=== PATIENT | male | born 1940 | race Caucasian/White ===

== ENCOUNTER 2021-01-13 12:31 | Outpatient (CLI) | payer MEDICARE, OTHER, SELFPAY ==
--- NOTE | 2021-01-13 12:45 | USCV_ITS ---
Hadley Tamir Age: 80 Gender: M : 1940 Exam Date: 01/13/2021 12:52 Ordering Phys: Scott Aleman M.D ([email or web address]) Technologist: Alison Acevedo Exam Location: [facility] [place] Indication: CHEST PAIN BP: / HR: 51 Rhythm: Sinus Technical Quality: Adequate MEASUREMENTS (Male / Female) Normal Values 2D ECHO LV Diastolic Diameter PLAX 3.8 cm 4.2 - 5.9 / 3.9 - 5.3 cm LV Systolic Diameter PLAX 2.9 cm LV Chamber Size 2.7 cm IVS Diastolic Thickness 1.0 cm 0.6 - 1.0 / 0.6 - 0.9 cm IVS Systolic Thickness 1.4 cm LVPW Diastolic Thickness 1.3 cm 0.6 - 1.0 / 0.6 - 0.9 cm LVPW Systolic Thickness 1.7 cm RV Chamber Size 3.1 cm LVOT Diameter 2.0 cm LV Ejection Fraction 2D Teich 44.0 % LV Ejection Fraction MOD 2C 37.9 % LV Ejection Fraction 2C AL 38.4 % LA Diameter 4.3 cm LA Width 3.0 cm LA Height 5.5 cm RA Width 4.1 cm RA Height 5.9 cm Aorta at Sinotubular Diameter 4.2 cm M-MODE LV Diastolic Diameter MM 4.2 cm 4.2 - 5.9 / 3.9 - 5.3 cm LV Systolic Diameter MM 2.9 cm LV Ejection Fraction MM Teich 58.1 % IVS Diastolic Thickness MM 1.3 cm 0.6 - 1.0 / 0.6 - 0.9 cm IVS Systolic Thickness MM 1.4 cm LVPW Diastolic Thickness MM 1.2 cm 0.6 - 1.0 / 0.6 - 0.9 cm LVPW Systolic Thickness MM 1.3 cm RV Diastolic Diameter MM 0.9 cm Aortic Annulus Diameter 4.1 cm LA Ao Ratio MM 1.1 MV E Point Septal Separation 0.4 cm DOPPLER AV Peak Velocity 152.7 cm/s LVOT Peak Velocity 97.0 cm/s AV Area Cont Eq vti 2.6 cm squared AV Area Cont Eq pk 2.1 cm squared MV Area PHT 2.5 cm squared Mitral E to A Ratio 1.8 MV E' Velocity 46.5 cm/s Mitral E to MV E' Ratio 7.6 Mitral E to LV E' Lateral Ratio 6.7 Mitral E to LV E' Septal Ratio 8.8 TR Peak Velocity 200.2 cm/s TR Peak Gradient 16.0 mmHg TR Mean Velocity 167.7 cm/s TR Mean Gradient 12.5 mmHg TR Velocity Time Integral 75.9 cm TV Peak E Velocity 94.0 cm/s Right Atrial Pressure 3.0 mmHg Pulmonary Artery Systolic Pressu 19.0 mmHg PV Peak Velocity 73.0 cm/s RV Acceleration Time 0.1 s RV Ejection Time 0.4 s RV AcT/ET 0.4 FINDINGS Left Ventricle Normal left ventricular size. LV systolic function is borderline normal with EF of 50-55%.Septal motion is consistent with prior surgery. Diastolic function is normal Right Ventricle The right ventricle is normal in size and function. Right Atrium The right atrium is mildly enlarged Left Atrium The left atrium is mildly enlarged Mitral Valve Aortic Valve Aortic valve is calcified. No significant aortic stenosis is noted. There is mild aortic regurgitation. Tricuspid Valve Structurally normal tricuspid valve without significant stenosis. Mild to moderate tricuspid regurgitation. RVSP is 25- 30mmHg Pulmonic Valve Structurally normal pulmonic valve without significant stenosis. There is no pulmonic regurgitation. Pericardium Normal pericardium without effusion. Aorta Aortic root is dilated CONCLUSIONS LV systolic function is borderline normal with EF of 50-55% Diastolic function is normal Mild biatrial enlargement Mild to moderate tricuspid regurgitation Aortic root is dilated Compared to prior echocardiogram from 11/29/2015, no significant changes are noted Scott Aleman MD (Electronically Signed) Final Date: 18 January 2021 20:24 S
== END 2021-01-13 12:32 | disposition home or self-care (01) ==
LOC: US 12:32
PROVIDERS: PCP Nurse Practitioner; Visit Provider Internal Medicine
DX: Z86.79 Personal history of other diseases of the circulatory system (principal); R07.9 Chest pain, unspecified; I07.1 Rheumatic tricuspid insufficiency
CPT/HCPCS: 93306

== ENCOUNTER 2021-11-27 09:02 | Outpatient (CLI) | payer MEDICARE, OTHER, SELFPAY ==
--- NOTE | 2021-11-27 09:11 | USCV_ITS ---
Hadley Tamir Age: 81 Gender: M : 1940 Exam Date: 11/27/2021 09:31 Ordering Phys: Eva Graves APN Technologist: [place] [facility] [place]: AAA SCREENING. No prior hx AAA. HISTORY: Diameter (cm) AP x Transverse x Length Velocity (cm/s) Waveform Prox Aorta: 2.86 x 2.82 x 85.10 Triphasic Mid Aorta: 2.65 x 2.76 x 84.30 Triphasic Distal Aorta: 2.07 x 2.21 x 77.70 Triphasic Right Iliac Prox: 1.25 x 1.53 x 91.70 Triphasic Left Iliac Prox: 1.46 x 1.22 x 71.10 Triphasic Stent Prox Landing x x Aneurysmal Sac Max x x Lt Lat Sac Dim Rt Lat Sac Dim Stent Dist Landing x x Right Iliac Stent x x Left Iliac Stent x x Right Renal Art Left Renal Art FINDINGS: Mild diffuse plaques in the abdominal aorta Normal aortic and common iliac artery dimensions Normal Doppler flow velocities CONCLUSIONS Mild diffuse plaques in the abdominal aorta. No evidence of aneurysms in abdominal aorta or proximal common iliac arteries Dr Lianne Jimenez MD [facility] (Electronically Signed) Final Date: 27 November 2021 18:01 S
== END 2021-11-27 09:03 | disposition home or self-care (01) ==
LOC: RAD 09:09
PROVIDERS: PCP Nurse Practitioner; Visit Provider Nurse Practitioner
DX: I71.4 Abdominal aortic aneurysm, without rupture (principal); I70.0 Atherosclerosis of aorta
CPT/HCPCS: 76706

== ENCOUNTER → 2022-08-03 11:11 | Outpatient (BNVA) | payer MEDICARE, OTHER, SELFPAY | PROVIDERS: PCP Nurse Practitioner Family; Visit Provider Internal Medicine Cardiovascular Disease | DX: I25.5 Ischemic cardiomyopathy (principal); I47.1 Supraventricular tachycardia; I71.9 Aortic aneurysm of unspecified site, without rupture; E78.5 Hyperlipidemia, unspecified; I10 Essential (primary) hypertension; I25.10 Atherosclerotic heart disease of native coronary artery without angina pectoris; Z95.1 Presence of aortocoronary bypass graft; I48.91 Unspecified atrial fibrillation; Z98.890 Other specified postprocedural states | CPT/HCPCS: 99213; 99214 ==

== ENCOUNTER 2022-08-27 10:42 | Outpatient (CLI) | payer MEDICARE, OTHER, SELFPAY ==
--- NOTE | 2022-08-27 09:30 | CT_ITS ---
WS: [id number] CTA THORACIC TECHNIQUE: Contrast enhanced CTA of the thoracic aorta with coronal and sagittal reformatted images a nd maximum intensity projection (MIP) images. CLINICAL INFORMATION: surveil previous ascending akortic aneurysm repair COMPARISON: DLP: 1276.[address] scans at [facility] use at least one of these dose optimization techniques: automated e xposure control; mA and/or kV adjustment per patient size (includes targeted exams where dose is matc hed to clinical indication); or iterative reconstruction. FINDINGS: Previous postoperative changes ascending aortic root graft placement. Aortic graft and ascending thor acic aorta are stable in appearance compared to 2019. Ascending thoracic aorta today measures approxi mately 4.3 cm unchanged from previous. Slightly ectatic aortic arch measuring 3.5 cm is unchanged fro m previous. Sternotomy. CABG. Normal caliber descending thoracic aorta. Proximal main pulmonary arter ies are normal. Adrenal glands are normal. Small RIGHT renal cyst. Splenic granulomas. Celiac and SMA are patent. Gal lbladder sludge or microcalculi in the gallbladder. Anterior wedging in the thoracic spine with hyper trophic changes. Moderate chronic emphysematous changes. CT/CT angio chest 15057 IMPRESSION: 1. Stable ascending aortic graft with ascending thoracic aorta measuring 4.3 un changed since 2019 2. Stable ectatic thoracic aorta measuring 3.5 CM. 3. Vascular calcification including coronary. 4. No other significant changes from previous.
[2022-08-27 11:38] LABS: Blood Urea Nitrogen 22 mg/dL (8-23)
[2022-08-27] MEDS: iohexol 350 mg/mL 100 mL Btl IV (11:53)
== END 2022-08-27 10:43 | disposition home or self-care (01) ==
LOC: RAD 10:43
PROVIDERS: PCP Nurse Practitioner Family; Visit Provider Internal Medicine Cardiovascular Disease
DX: Z98.890 Other specified postprocedural states (principal); I77.810 Thoracic aortic ectasia
CPT/HCPCS: 71275; 82565; 84520

== ENCOUNTER → 2022-10-15 09:53 | Outpatient (BNVA) | payer MEDICARE, OTHER, SELFPAY | PROVIDERS: PCP Nurse Practitioner Family; Visit Provider Nurse Practitioner Family | DX: R55 Syncope and collapse (principal); I48.91 Unspecified atrial fibrillation; I10 Essential (primary) hypertension | CPT/HCPCS: 99214 ==

== ENCOUNTER → 2022-11-29 10:43 | Outpatient (BNVA) | payer MEDICARE, OTHER, SELFPAY | PROVIDERS: PCP Nurse Practitioner Family; Visit Provider Internal Medicine Cardiovascular Disease | DX: R55 Syncope and collapse (principal); I25.5 Ischemic cardiomyopathy; Z98.890 Other specified postprocedural states; Z86.79 Personal history of other diseases of the circulatory system; I71.9 Aortic aneurysm of unspecified site, without rupture; E78.5 Hyperlipidemia, unspecified; I10 Essential (primary) hypertension; I25.10 Atherosclerotic heart disease of native coronary artery without angina pectoris; I48.91 Unspecified atrial fibrillation; Z95.1 Presence of aortocoronary bypass graft | CPT/HCPCS: 99214 ==

== ENCOUNTER 2022-12-21 10:48 | Outpatient (CLI) | payer MEDICARE, OTHER, SELFPAY ==
--- NOTE | 2022-12-21 | USCV_ITS ---
Tamir Butcher Age: 82 Gender: M : 1940 Exam Date: 12/21/2022 11:04 Ordering Phys: Brisa Armstrong HOSPICE DIRECTOR Technologist: MIL Exam Location: [facility] [place] Indication: AAA Screening HISTORY: Diameter (cm) AP x Transverse x Length Velocity (cm/s) Waveform Prox Aorta: 2.17 x 2.13 x 83.50 Mid Aorta: 1.89 x 1.94 x 61.10 Distal Aorta: 1.95 x 2.20 x 40.30 Right Iliac Prox: 0.94 x 1.43 x 101.60 Left Iliac Prox: 0.96 x 1.40 x 117.30 Stent Prox Landing x x Aneurysmal Sac Max x x Lt Lat Sac Dim Rt Lat Sac Dim Stent Dist Landing x x Right Iliac Stent x x Left Iliac Stent x x Right Renal Art Left Renal Art FINDINGS: Comparison:. 11/27/21. Ectatic abdominal aorta with evidence of atherosclerotic plaque noted. No evidence of abdominal aortic aneurysm. There is evidence of atherosclerotic plaque no significan stenosis in the right common iliac artery. There is evidence of atherosclerotic plaque no significan stenosis in the left common iliac artery. CONCLUSIONS No evidence of abdominal aortic or bilateral iliac aneurysm. Dr. Liliana Shirley DO (Electronically Signed) Final Date: 21 December 2022 11:52 S
== END 2022-12-21 10:49 | disposition home or self-care (01) ==
PROVIDERS: PCP Nurse Practitioner Family; Visit Provider Nurse Practitioner Family
DX: Z13.6 Encounter for screening for cardiovascular disorders (principal)
CPT/HCPCS: 76706

== ENCOUNTER 2022-12-26 11:54 | Outpatient (CLI) | payer MEDICARE, OTHER, SELFPAY ==
--- NOTE | 2022-12-26 12:00 | USCV_ITS ---
Hadley Tamir Age: 82 Gender: M : 1940 Exam Date: 12/26/2022 12:22 Ordering Phys: Cali Powers MD ([email or web address]) Technologist: Lynda Garcia Exam Location: [facility] [place] Indication: TIA< dizzy, CAD BP: 130 / 88 HR: 57 Rhythm: Sinus Technical Quality: Adequate MEASUREMENTS (Male / Female) Normal Values 2D ECHO LV Diastolic Diameter PLAX 4.5 cm 4.2 - 5.9 / 3.9 - 5.3 cm LV Systolic Diameter PLAX 2.8 cm IVS Diastolic Thickness 1.3 cm 0.6 - 1.0 / 0.6 - 0.9 cm IVS Systolic Thickness 1.7 cm LVPW Diastolic Thickness 0.8 cm 0.6 - 1.0 / 0.6 - 0.9 cm LVPW Systolic Thickness 1.5 cm LVOT Diameter 2.1 cm LV Ejection Fraction 2D Teich 68.4 % LV Ejection Fraction MOD 2C 60.9 % LV Ejection Fraction 2C AL 64.7 % LA Diameter 3.7 cm LA Width 4.3 cm LA Height 6.2 cm RA Width 5.1 cm RA Height 5.7 cm Aorta at Sinotubular Diameter 3.8 cm M-MODE MV E Point Septal Separation 0.4 cm DOPPLER AV Peak Velocity 157.0 cm/s LVOT Peak Velocity 113.0 cm/s AV Area Cont Eq vti 2.4 cm squared AV Area Cont Eq pk 2.5 cm squared MV Peak Velocity 79.0 cm/s MV Area PHT 2.0 cm squared Mitral E to A Ratio 1.0 MV E' Velocity 44.0 cm/s Mitral E to MV E' Ratio 6.4 Mitral E to LV E' Lateral Ratio 5.8 Mitral E to LV E' Septal Ratio 7.2 TR Peak Velocity 217.3 cm/s TR Peak Gradient 18.9 mmHg Right Atrial Pressure 3.0 mmHg Pulmonary Artery Systolic Pressu 21.9 mmHg PV Peak Velocity 104.0 cm/s RV Acceleration Time 0.1 s RV Ejection Time 0.3 s RV AcT/ET 0.5 FINDINGS Left Ventricle Normal left ventricular size, systolic function and wall thickness, with no regional wall motion abnormalities. Grade I/IV diastolic dysfunction (abnormal relaxation filling pattern), normal to mildly elevated filling pressures. Left ventricular ejection fraction is estimated at 60 %. Right Ventricle Normal right ventricular size and systolic function. Normal right ventricular systolic pressure. Right Atrium Mildly increased right atrial size. Left Atrium Mildly increased left atrial size. Mitral Valve Structurally normal mitral valve. Trace mitral valve regurgitation. Aortic Valve Structurally normal trileaflet aortic valve. Moderate aortic valve calcification. Aortic valve sclerosis without stenosis. Trace AI Tricuspid Valve Structurally normal tricuspid valve. Mild tricuspid valve regurgitation. Pulmonic Valve Pulmonic valve not well visualized. Pericardium Normal pericardium without effusion. Aorta Normal ascending aorta dimension. IVC Inferior vena cava not visualized. CONCLUSIONS Normal left ventricular size, systolic function and wall thickness, with no regional wall motion abnormalities. Grade I/IV diastolic dysfunction (abnormal relaxation filling pattern), normal to mildly elevated filling pressures. Left ventricular ejection fraction is estimated at 60 %. Mildly increased right atrial size. Mildly increased left atrial size. Structurally normal mitral valve. Trace mitral valve regurgitation. Structurally normal trileaflet aortic valve. Moderate aortic valve calcification. Aortic valve sclerosis without stenosis. Trace AI. There is no change from the previous study done January 18, 2021 Dr. Cali Powers MD (Electronically Signed) Final Date: 27 December 2022 10:27 S
== END 2022-12-26 11:55 | disposition home or self-care (01) ==
LOC: RAD 11:54
PROVIDERS: PCP Nurse Practitioner Family; Visit Provider Internal Medicine Cardiovascular Disease
DX: I25.5 Ischemic cardiomyopathy (principal); R55 Syncope and collapse; Z98.890 Other specified postprocedural states
CPT/HCPCS: 93306

== ENCOUNTER → 2023-01-18 10:18 | Outpatient (BNVA) | payer MEDICARE, OTHER, SELFPAY | PROVIDERS: PCP Nurse Practitioner Family; Visit Provider Internal Medicine | DX: I25.5 Ischemic cardiomyopathy (principal); Z86.79 Personal history of other diseases of the circulatory system; Z98.890 Other specified postprocedural states; I71.9 Aortic aneurysm of unspecified site, without rupture; E78.5 Hyperlipidemia, unspecified; I10 Essential (primary) hypertension; I25.10 Atherosclerotic heart disease of native coronary artery without angina pectoris; I48.91 Unspecified atrial fibrillation; Z95.1 Presence of aortocoronary bypass graft; Z79.82 Long term (current) use of aspirin | CPT/HCPCS: 99214 ==

== ENCOUNTER → 2023-02-11 09:38 | Outpatient (BNVA) | payer MEDICARE, OTHER, SELFPAY | PROVIDERS: PCP Nurse Practitioner Family; Visit Provider Internal Medicine Cardiovascular Disease | DX: R42 Dizziness and giddiness (principal); R00.1 Bradycardia, unspecified | CPT/HCPCS: 93225 ==

== ENCOUNTER → 2023-07-19 11:35 | Outpatient (BNVA) | payer MEDICARE, OTHER, SELFPAY | PROVIDERS: PCP Nurse Practitioner Family; Visit Provider Internal Medicine | DX: I25.5 Ischemic cardiomyopathy (principal); Z86.79 Personal history of other diseases of the circulatory system; Z98.890 Other specified postprocedural states; I71.9 Aortic aneurysm of unspecified site, without rupture; E78.5 Hyperlipidemia, unspecified; I10 Essential (primary) hypertension; I25.10 Atherosclerotic heart disease of native coronary artery without angina pectoris; I48.91 Unspecified atrial fibrillation; Z95.1 Presence of aortocoronary bypass graft | CPT/HCPCS: 99214 ==

== ENCOUNTER 2023-08-05 12:19 | Outpatient (CLI) | payer MEDICARE, OTHER, SELFPAY ==
--- NOTE | 2023-08-05 12:45 | USCV_ITS ---
Tamir Butcher Age: 82 Gender: M : 1940 Exam Date: 08/05/2023 12:39 Ordering Phys: Scott Aleman M.D ([email or web address]) Technologist: Cas Edwards Exam Location: [facility] [place] Indication: murmur BP: 125 / 75 HR: 62 Rhythm: Sinus Technical Quality: Adequate MEASUREMENTS (Male / Female) Normal Values 2D ECHO LV Diastolic Diameter PLAX 3.7 cm 4.2 - 5.9 / 3.9 - 5.3 cm LV Systolic Diameter PLAX 2.2 cm IVS Diastolic Thickness 1.1 cm 0.6 - 1.0 / 0.6 - 0.9 cm IVS Systolic Thickness 1.8 cm LVPW Diastolic Thickness 1.1 cm 0.6 - 1.0 / 0.6 - 0.9 cm LVPW Systolic Thickness 1.5 cm LVOT Diameter 2.0 cm LV Ejection Fraction 2D Teich 72.6 % LV Ejection Fraction MOD 2C 72.6 % LV Ejection Fraction 2C AL 72.5 % LA Diameter 4.1 cm Aorta at Sinotubular Diameter 3.6 cm M-MODE Aortic Annulus Diameter 4.6 cm LA Ao Ratio MM 0.8 MV E Point Septal Separation 0.7 cm DOPPLER AV Peak Velocity 332.0 cm/s LVOT Peak Velocity 99.0 cm/s AV Area Cont Eq vti 1.2 cm squared AV Area Cont Eq pk 1.0 cm squared MV Area PHT 2.5 cm squared Mitral E to A Ratio 0.9 MV E' Velocity 42.0 cm/s Mitral E to MV E' Ratio 7.2 Mitral E to LV E' Lateral Ratio 6.5 Mitral E to LV E' Septal Ratio 8.2 TR Peak Velocity 285.0 cm/s TR Peak Gradient 32.5 mmHg TV Peak E Velocity 108.0 cm/s Right Atrial Pressure 3.0 mmHg Pulmonary Artery Systolic Pressu 35.5 mmHg RV Acceleration Time 0.1 s FINDINGS Left Ventricle Left ventricle is normal in size. LV systolic function is normal with EF of 55 to 60%. No regional wall motion abnormalities are seen. Grade 1 diastolic dysfunction. Right Ventricle Normal in size and function Right Atrium Normal in size Left Atrium Normal in size Mitral Valve Mild mitral annular calcification. Trace mitral regurgitation. Aortic Valve Aortic valve is thickened. Mild to moderate aortic stenosis with aortic valve area 1.18 cm squared and mean gradient across aortic valve of 18 mmHg. Tricuspid Valve Mild tricuspid regurgitation. RVSP is 35 to 40 mmHg. This is consistent with mild pulmonary hypertension. Pulmonic Valve Not well-visualized Pericardium Normal Aorta Ascending aorta is mildly dilated. IVC Appears to be normal CONCLUSIONS LV systolic function is normal with EF 55 to 60%. Grade 1 diastolic dysfunction. Trace mitral regurgitation. Mild to moderate aortic stenosis Mild tricuspid regurgitation. Ascending aorta is mildly dilated. Compared to prior echocardiogram from 12/2022, patient has mild to moderate aortic stenosis. Scott Aleman MD (Electronically Signed) Final Date: 10 August 2023 22:13 S
== END 2023-08-05 12:20 | disposition home or self-care (01) ==
LOC: RAD 12:22
PROVIDERS: PCP Nurse Practitioner Family; Visit Provider Internal Medicine
DX: I08.3 Combined rheumatic disorders of mitral, aortic and tricuspid valves (principal); R01.1 Cardiac murmur, unspecified
CPT/HCPCS: 93306

== ENCOUNTER → 2023-10-18 08:49 | Outpatient (BNVA) | payer MEDICARE, OTHER, SELFPAY | PROVIDERS: PCP Nurse Practitioner Family; Visit Provider Podiatrist Foot & Ankle Surgery | DX: B35.1 Tinea unguium; M79.671 Pain in right foot; M79.672 Pain in left foot | CPT/HCPCS: 11721; 99203 ==

== ENCOUNTER → 2024-01-24 10:31 | Outpatient (BNVA) | payer MEDICARE, OTHER, SELFPAY | PROVIDERS: PCP Nurse Practitioner Family; Visit Provider Nurse Practitioner Family | DX: I35.0 Nonrheumatic aortic (valve) stenosis (principal) | CPT/HCPCS: 99214 ==

== ENCOUNTER 2024-01-31 11:50 | Outpatient (CLI) | payer MEDICARE, OTHER, SELFPAY ==
--- NOTE | 2024-01-31 12:00 | USCV_ITS ---
Tamir Butcher Age: 83 Gender: M : 1940 Exam Date: 01/31/2024 12:02 Ordering Phys: Julee Busch Technologist: CT Exam Location: [facility] [place] Indication: BP: 140 / 64 HR: 77 Rhythm: Sinus Technical Quality: Adequate MEASUREMENTS (Male / Female) Normal Values 2D ECHO LVOT Diameter 2.3 cm LV Ejection Fraction MOD 2C 68.6 % LV Ejection Fraction 2C AL 67.9 % LA Diameter 5.0 cm RA Systolic Volume 4C AL 108.9 ml RA Systolic Volume 4C MOD 104.8 ml Aorta at Sinotubular Diameter 3.9 cm M-MODE LA Ao Ratio MM 1.3 AV Cusp Separation MM 0.8 cm DOPPLER AV Peak Velocity 263.3 cm/s LVOT Peak Velocity 98.0 cm/s AV Area Cont Eq vti 1.8 cm squared AV Area Cont Eq pk 1.6 cm squared MV Peak Velocity 73.0 cm/s MV Area PHT 2.2 cm squared Mitral E to A Ratio 1.0 TR Peak Velocity 241.0 cm/s TR Peak Gradient 23.2 mmHg TV Peak E Velocity 83.0 cm/s Right Atrial Pressure 3.0 mmHg Pulmonary Artery Systolic Pressu 26.2 mmHg PV Peak Velocity 109.5 cm/s FINDINGS Left Ventricle Normal left ventricular size and systolic function, EF 69%.no regional wall motion abnormalities. Right Ventricle The right ventricle is normal in size and function. Right Atrium Mildly increased right atrial size. Left Atrium Mildly increased left atrial size. Mitral Valve No gross abnormalities noted Aortic Valve Mild aortic valve stenosis, mean gradient 13.6 mmHg, MARC 1.8 cm squared. Tricuspid Valve Mild tricuspid valve regurgitation. Estimated pulmonary artery peak systolic pressure of 26 mmHg Pulmonic Valve Pulmonic valve not well visualized. Pericardium Normal pericardium without effusion. Aorta Normal ascending aorta dimension. IVC Inferior vena cava not visualized. CONCLUSIONS Normal left ventricular size and systolic function, EF 69%.no regional wall motion abnormalities. Mild biatrial enlargement. Mild aortic valve stenosis, mean gradient 13.6 mmHg, MARC 1.8 cm squared. Peak velocity of 2.63 m/s Mild tricuspid valve regurgitation. Estimated pulmonary artery peak systolic pressure of 26 mmHg. There is no pericardial effusion. There are no intracardiac masses. Compared to the study from 08/05/2023, there may not be significant change Dr Lianne Jimenez MD [facility] (Electronically Signed) Final Date: 31 January 2024 20:22 S
== END 2024-01-31 11:51 | disposition home or self-care (01) ==
LOC: RAD 11:50
PROVIDERS: PCP Nurse Practitioner Family; Visit Provider Nurse Practitioner Family
DX: I08.2 Rheumatic disorders of both aortic and tricuspid valves (principal)
CPT/HCPCS: 93306

== ENCOUNTER 2024-02-13 09:39 | Outpatient (CLI) | payer MEDICARE, OTHER, SELFPAY ==
[2024-02-13 10:07] VITALS: BMI 27.8
--- NOTE | 2024-02-13 10:10 | ECG_ITS ---
[facility] Test Date: 2024-02-13 Pat Name: Tamir Butcher Department: Room: Gender: Male Events Manager: : 1940 Requested By: Julee Busch Order Number: [id number] Pickard MD: Scott Aleman M.D. Interpretive Statements NAME OF STUDY: LEXISCAN SESTAMIBI STRESS TEST INDICATION: [Worsening Fatigue on Exertin] Procedure: At the baseline, the blood pressure was 135/76 mmHg with a heart rate of 69 bpm. The electrocardiogram showed normal sinus rhythm, right bundle branch block. The Lexiscan was infused over a period of 20 seconds. A total of 0.4 mg of Lexiscan was infused. The stress phase was continued for a total of 5 minutes. Heart rate was at the end of stress phase was 68 bpm and a blood pressure of 142/75 mmHg. The EKG at the peak infusion revealed normal sinus rhythm with no significant ST-T wave changes. Sestamibi was injected 20 seconds after the Lexiscan infusion. Blood pressure at the end of recovery phase was 142/75 mmHg with a heart rate of 67 bpm. Conclusion: 1. Normal EKG response to Lexiscan infusion 2. No Lexiscan induced chest pain or cardiac arrhythmia. 3. Normal blood pressure and heart rate response. 4. Sestamibi/sestamibi perfusion scan pending; see separate report. Electronically Signed On 02-20-2024 12:22:25 CDT by Scott Aleman M.D. [id number]
--- NOTE | 2024-02-13 10:11 | NMCV_ITS ---
NM adrian perf SPECT r/s* [id number] Tamir Butcher Age: 83 Gender: M : 1940 Exam Date: 02/13/2024 10:58 Ordering Phys: Julee Busch Technologist: YAZ Sanz Exam [facility]: [facility] Indications: CORONARY ANGIOPLASTY STATUS STRESS TEST Please see separate stress test report in [facility] for full findings IMAGE PROTOCOL Rest/Stress 1 Lexiscan Day Radiopharmaceutical Dose (mCi) Administration Site Administered by Rest: Tc-99m 10.9 IV YAZ Sanz Sestamibi Stress:Tc-99m 33.0 IV YAZ Boggs Sestamibi Rest: 13-Feb-2024 60 Discovery 630 Stress: 13-Feb-2024 30 Discovery 630 0.4mg Lexiscan. Images obtained in supine and prone position. SPECT RESULTS Technical Quality: Excellent Raw Data Analysis: Normal Image Corrections: No attenuation or motion correction applied Summed Stress Score: 3 Summed Rest Score: 7 Summed Difference Score: 0 PERFUSION FINDINGS There is a medium sized area of fixed perfusion defect noted in the inferior wall. 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 FUNCTIONAL RESULTS (calculated via Gated SPECT) Stress Image LV EF (%): 76 Stress EDV (mL):74 TID: 0.98 Stress ESV (mL):18 FUNCTIONAL FINDINGS: There is normal left ventricular systolic function. IMPRESSIONS 1. 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 No evidence of ischemia 2. LV systolic function is normal Scott Aleman MD (Electronically Signed) Final Date: 15 February 2024 09:17 S
[2024-02-13] MEDS: regadenoson 0.4 Mg/5 ml Syringe 0.400000000000000022 MG IVP (11:47)
[2024-02-13 12:13] VITALS: BP 154/67; PULSE 82
== END 2024-02-13 09:40 | disposition home or self-care (01) ==
LOC: CDL 09:40
PROVIDERS: PCP Nurse Practitioner Family; Visit Provider Nurse Practitioner Family
DX: Z95.1 Presence of aortocoronary bypass graft (principal)
CPT/HCPCS: 36415; 78452; 93017; 96374; A9500; J2785

== ENCOUNTER → 2024-07-23 11:20 | Outpatient (BNVA) | payer MEDICARE, OTHER, SELFPAY | PROVIDERS: PCP Nurse Practitioner Family; Visit Provider Internal Medicine | DX: I25.10 Atherosclerotic heart disease of native coronary artery without angina pectoris (principal); I25.5 Ischemic cardiomyopathy; Z86.79 Personal history of other diseases of the circulatory system; Z98.890 Other specified postprocedural states; I71.9 Aortic aneurysm of unspecified site, without rupture; E78.5 Hyperlipidemia, unspecified; I10 Essential (primary) hypertension; I48.91 Unspecified atrial fibrillation; Z95.1 Presence of aortocoronary bypass graft | CPT/HCPCS: 99214 ==

== ENCOUNTER → 2024-12-16 13:08 | Outpatient (BNVA) | payer MEDICARE, OTHER, SELFPAY | PROVIDERS: PCP Nurse Practitioner Family; Visit Provider Podiatrist Foot & Ankle Surgery | DX: B35.1 Tinea unguium (principal) | CPT/HCPCS: 99213 ==

== ENCOUNTER → 2025-01-25 11:58 | Outpatient (BNVA) | payer MEDICARE, OTHER, SELFPAY | PROVIDERS: PCP Nurse Practitioner Family; Visit Provider Internal Medicine | DX: I25.5 Ischemic cardiomyopathy (principal); I48.91 Unspecified atrial fibrillation; Z86.79 Personal history of other diseases of the circulatory system; Z98.890 Other specified postprocedural states; I71.9 Aortic aneurysm of unspecified site, without rupture; E78.5 Hyperlipidemia, unspecified; I10 Essential (primary) hypertension; I25.10 Atherosclerotic heart disease of native coronary artery without angina pectoris; Z95.1 Presence of aortocoronary bypass graft; I35.0 Nonrheumatic aortic (valve) stenosis | CPT/HCPCS: 99214 ==

== ENCOUNTER → 2025-01-25 12:39 | Outpatient (BNVA) | payer MEDICARE, OTHER, SELFPAY | PROVIDERS: PCP Nurse Practitioner Family; Visit Provider Internal Medicine | DX: Z53.9 Procedure and treatment not carried out, unspecified reason (principal) ==

== ENCOUNTER 2025-03-01 09:52 | Outpatient (CLI) | payer MEDICARE, OTHER, SELFPAY ==
--- NOTE | 2025-03-01 10:00 | USCV_ITS ---
Tamir Butcher Age: 84 Gender: M : 1940 Exam Date: 03/01/2025 10:05 Ordering Phys: Scott Aleman M.D ([email or web address]) Technologist: MIL Exam Location: [facility] [place] Indication: Aortic Stenosis BP: 140 / 80 HR: 60 Rhythm: Sinus Technical Quality: Adequate MEASUREMENTS (Male / Female) Normal Values 2D ECHO LV Diastolic Diameter PLAX 4.8 cm 4.2 - 5.9 / 3.9 - 5.3 cm IVS Diastolic Thickness 1.0 cm 0.6 - 1.0 / 0.6 - 0.9 cm IVS Systolic Thickness 1.5 cm LVPW Diastolic Thickness 0.9 cm 0.6 - 1.0 / 0.6 - 0.9 cm LVPW Systolic Thickness 1.5 cm LVOT Diameter 1.9 cm LV Ejection Fraction 2D Teich 68.8 % LV Ejection Fraction MOD 4C 74.7 % LV Ejection Fraction MOD 2C 65.6 % LV Ejection Fraction 2C AL 65.3 % LA Diameter 4.3 cm RA Systolic Volume 4C AL 68.1 ml RA Systolic Volume 4C MOD 63.9 ml LA Sys Volume AL 89.6 cm cubed LA Sys Volume Index AL 41.7 cm cubed/m squared Aorta at Sinotubular Diameter 2.3 cm M-MODE LA Ao Ratio MM 1.7 AV Cusp Separation MM 1.4 cm DOPPLER AV Peak Velocity 312.0 cm/s LVOT Peak Velocity 70.0 cm/s AV Area Cont Eq vti 0.8 cm squared AV Area Cont Eq pk 0.6 cm squared MV Peak Velocity 128.0 cm/s MV Area PHT 5.2 cm squared Mitral E to A Ratio 3.4 TR Peak Velocity 240.0 cm/s TR Peak Gradient 23.0 mmHg TV Peak E Velocity 146.0 cm/s PV Peak Velocity 130.0 cm/s FINDINGS Left Ventricle Left ventricle is normal in size. LV systolic function is normal with EF of 55-60%. No regional wall motion abnormalities. Right Ventricle Mild RV dysfunction Right Atrium Dilated Left Atrium Dilated Mitral Valve Structurally normal mitral valve. Trace mitral regurgitation. Aortic Valve Aortic valve is thickened and calcified. Moderate to severe aortic stenosis with aortic valve area of 0.72cm2 and mean gradient is 26mmHg. Tricuspid Valve Mild tricuspid regurgitation. Pulmonary artery systolic pressure is normal Pulmonic Valve Not well visualized Pericardium Normal Aorta Grossly ascending aorta appears to be dilated. IVC Not well visualized CONCLUSIONS LV systolic function is normal with EF of 55-60% Mild RV dysfunction Biatrial dilation Trace mitral regurgitation Moderate to severe aortic stenosis Mild tricuspid regurgitation. Grossly ascending aorta appears to be dilated. Compared to prior echocardiogram from 2023, aortic stenosis has progressed and RV appears to be mildly hypokinetic. Scott Aleman MD (Electronically Signed) Final Date: 09 March 2025 09:54 S
== END 2025-03-01 09:53 | disposition home or self-care (01) ==
PROVIDERS: PCP Nurse Practitioner Family; Visit Provider Internal Medicine
DX: I35.0 Nonrheumatic aortic (valve) stenosis (principal); R93.1 Abnormal findings on diagnostic imaging of heart and coronary circulation; I35.8 Other nonrheumatic aortic valve disorders; I07.1 Rheumatic tricuspid insufficiency
CPT/HCPCS: 93306

== ENCOUNTER → 2025-03-10 12:29 | Outpatient (BNVA) | payer MEDICARE, OTHER, SELFPAY | PROVIDERS: PCP Nurse Practitioner Family; Visit Provider Podiatrist Foot & Ankle Surgery | DX: M20.12 Hallux valgus (acquired), left foot (principal); M21.622 Bunionette of left foot | CPT/HCPCS: 99214 ==

== ENCOUNTER → 2025-03-29 12:40 | Outpatient (BNVA) | payer MEDICARE, OTHER, SELFPAY | PROVIDERS: PCP Nurse Practitioner Family; Visit Provider Internal Medicine | DX: I35.0 Nonrheumatic aortic (valve) stenosis (principal); I25.5 Ischemic cardiomyopathy; Z86.79 Personal history of other diseases of the circulatory system; Z98.890 Other specified postprocedural states; I71.9 Aortic aneurysm of unspecified site, without rupture; E78.5 Hyperlipidemia, unspecified; I10 Essential (primary) hypertension; I25.10 Atherosclerotic heart disease of native coronary artery without angina pectoris; I48.91 Unspecified atrial fibrillation; Z95.1 Presence of aortocoronary bypass graft; Z79.01 Long term (current) use of anticoagulants | CPT/HCPCS: 99214 ==

== ENCOUNTER → 2025-07-13 12:58 | Outpatient (BNVA) | payer MEDICARE, OTHER, SELFPAY | PROVIDERS: PCP Nurse Practitioner Family; Visit Provider Internal Medicine | DX: I25.10 Atherosclerotic heart disease of native coronary artery without angina pectoris (principal); I25.5 Ischemic cardiomyopathy; I10 Essential (primary) hypertension; E78.5 Hyperlipidemia, unspecified; I48.91 Unspecified atrial fibrillation; Z79.01 Long term (current) use of anticoagulants; Z79.82 Long term (current) use of aspirin; I35.0 Nonrheumatic aortic (valve) stenosis; Q25.43 Congenital aneurysm of aorta; Z98.890 Other specified postprocedural states; Z95.1 Presence of aortocoronary bypass graft; Z86.79 Personal history of other diseases of the circulatory system | CPT/HCPCS: 99214 ==

== ENCOUNTER 2025-08-30 11:06 | Outpatient (CLI) | payer MEDICARE, OTHER, SELFPAY ==
--- NOTE | 2025-08-30 11:15 | USCV_ITS ---
Tamir Butcher Age: 84 Gender: M : 1940 Exam Date: 08/30/2025 11:27 Ordering Phys: Scott Aleman M.D ([email or web address]) Technologist: Exam Location: [facility] Indication: cp sob BP: 120 / 70 HR: 94 Rhythm: Sinus Technical Quality: Adequate MEASUREMENTS (Male / Female) Normal Values 2D ECHO LV Diastolic Diameter PLAX 4.4 cm 4.2 - 5.9 / 3.9 - 5.3 cm IVS Diastolic Thickness 1.3 cm 0.6 - 1.0 / 0.6 - 0.9 cm IVS Systolic Thickness 1.6 cm LVPW Diastolic Thickness 1.2 cm 0.6 - 1.0 / 0.6 - 0.9 cm LVPW Systolic Thickness 1.6 cm LVOT Diameter 2.0 cm LV Ejection Fraction 2D Teich 68.2 % LV Ejection Fraction MOD 4C 66.5 % LV Ejection Fraction MOD 2C 69.9 % LV Ejection Fraction 2C AL 70.3 % LA Diameter 4.7 cm RA Systolic Volume 4C AL 108.9 ml RA Systolic Volume 4C MOD 107.0 ml Aorta at Sinotubular Diameter 4.5 cm M-MODE LA Ao Ratio MM 1.0 AV Cusp Separation MM 1.9 cm DOPPLER AV Peak Velocity 409.0 cm/s LVOT Peak Velocity 84.0 cm/s AV Area Cont Eq vti 0.9 cm squared AV Area Cont Eq pk 0.7 cm squared MV Peak Velocity 108.0 cm/s MV Area PHT 3.6 cm squared Mitral E to A Ratio 2.0 TV Peak Velocity 220.5 cm/s TR Peak Velocity 277.0 cm/s TR Peak Gradient 30.7 mmHg TV Peak E Velocity 118.0 cm/s PV Peak Velocity 137.0 cm/s FINDINGS Left Ventricle Normal left ventricular size, systolic function and wall thickness, with no regional wall motion abnormalities. Left ventricular ejection fraction is estimated at 60 %. Grade I/IV diastolic dysfunction (abnormal relaxation filling pattern), normal to mildly elevated filling pressures. Right Ventricle Normal right ventricular size and systolic function. Right Atrium Moderately increased right atrial size. Left Atrium Moderately increased left atrial size. IA Septum Normal appearance of the interatrial septum. Mitral Valve Mildly thickened mitral valve. Mitral annular calcification. No mitral valve stenosis. Mild mitral valve regurgitation. Aortic Valve Severe aortic valve calcification. Severe aortic valve stenosis, mean gradient 28.4 mmHg, MARC 0.92 cm squared.trace aortic valve regurgitation. Tricuspid Valve Moderate tricuspid valve regurgitation. Pulmonic Valve Trace pulmonary valve regurgitation. Pericardium No pericardial effusion. Aorta Normal diameter of the aortic root and ascending thoracic aorta. IVC Normal IVC diameter. CONCLUSIONS Normal left ventricular size, systolic function and wall thickness, with no regional wall motion abnormalities. Left ventricular ejection fraction is estimated at 60 %. Grade I/IV diastolic dysfunction (abnormal relaxation filling pattern), normal to mildly elevated filling pressures. Severe aortic valve calcification. Severe aortic valve stenosis, mean gradient 28.4 mmHg, MARC 0.92 cm squared.trace aortic valve regurgitation. Moderate tricuspid valve regurgitation. Mildly thickened mitral valve. Mitral annular calcification. No mitral valve stenosis. Mild mitral valve regurgitation. Moderately increased left atrial size. There is no pericardial effusion. Right atrial pressure is around 10 mm of mercury. Nahun Zhang MD (Electronically Signed) Final Date: 09 September 2025 20:53 S
== END 2025-08-30 11:07 | disposition home or self-care (01) ==
LOC: RAD 11:07
PROVIDERS: PCP Nurse Practitioner Family; Visit Provider Internal Medicine
DX: I35.0 Nonrheumatic aortic (valve) stenosis (principal); R93.1 Abnormal findings on diagnostic imaging of heart and coronary circulation; I51.7 Cardiomegaly; I34.81 Nonrheumatic mitral (valve) annulus calcification; I34.0 Nonrheumatic mitral (valve) insufficiency; I35.8 Other nonrheumatic aortic valve disorders; I07.1 Rheumatic tricuspid insufficiency
CPT/HCPCS: 93306

== ENCOUNTER → 2025-09-01 13:43 | Outpatient (BNVA) | payer MEDICARE, OTHER, SELFPAY | PROVIDERS: PCP Nurse Practitioner Family; Visit Provider Podiatrist Foot & Ankle Surgery | DX: I73.9 Peripheral vascular disease, unspecified (principal); L60.3 Nail dystrophy; L84 Corns and callosities | CPT/HCPCS: 11056; 11721 ==

== ENCOUNTER → 2025-09-27 14:00 | Outpatient (BNVA) | payer MEDICARE, OTHER, SELFPAY | PROVIDERS: PCP Nurse Practitioner Family; Visit Provider Internal Medicine | DX: I35.0 Nonrheumatic aortic (valve) stenosis (principal) | CPT/HCPCS: 99214 ==